=== PATIENT | female | born 1990 | race Caucasian/White ===

== ENCOUNTER 2018-09-05 21:35 | Emergency (ER) | payer OTHER ==
[~2018-09-05] VITALS: Ht 167.6 cm; Wt 83.0 kg
[2018-09-05 21:47] VITALS: Ht 167.6 cm; Wt 83.0 kg
[2018-09-05 22:29] VITALS: BP 106/75
== END 2018-09-05 22:29 | disposition home or self-care (01) ==
LOC: ED 21:35
DX: N30.90 Cystitis, unspecified without hematuria (principal)